=== PATIENT | male | born 1950 | race Caucasian/White ===

== ENCOUNTER 2018-08-29 10:54 | Inpatient (IN) ==
[2018-08-29] MEDS ORDERED: 0.9 % Sodium Chloride 500 ML IVC ONE ×2 (11:13→13:03)
--- NOTE | 2018-08-29 11:13 | Emergency Department Note ---
Disposition Clinical Impression: Leukocytosis Disposition: Admitted As Inpatient Condition: Fair Time of Disposition: 13:30 General Adult HPI - General Chief complaint: ED Altered Mental Status Stated complaint: altered mental status Time Seen by Provider: 08/29/18 11:00 Source: patient, EMS Nursing Notes Reviewed: Yes Vital Signs Reviewed: Yes - History of Present Illness HPI Narrative: Mr. Damian was transported to [place] ER today for altered mental status. He lives with his [id number] and her . He was found per EMS staff sitting in his own feces today. When I asked Mr. Damian about this she has not been incontinent not had any diarrhea but was just too weak to get up to use the bathroom today. He was home alone for a little while this morning. He is also been a bit more short of breath. He is a smoker not on home oxygen. 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 Last radiation treatment was in March on review of the [place] [facility] records. Record review also reveals that he was a no-show at a radiation oncology visit at [facility] about a month ago and a request for call-in of pain medication was denied. Mr. Damian per his own report has been atypically very weak and usually gets around with a walker at home in addition to the shortness of breath. No fever no chills no increased cough no chest pain no abdominal pain no urinary symptoms. He does have some chronic pain to the left leg but otherwise nothing actually hurts. I also told by ER staff that family has been trying to find chcf placement for him. This was confirmed by a daughter and her he did, little later in the ER stay. - Related Data Home Medications Medication Instructions Recorded Confirmed Acetaminophen [Pain Reliever] 500 mg PO AD 12/23/17 06/05/18 Atorvastatin [Lipitor] 40 mg PO HS 12/23/17 06/05/18 Metoprolol Tartrate [Lopressor] 50 mg PO BID 12/23/17 06/05/18 Previous Rx's Medication Instructions Recorded HYDROcodone/Acet 5/325 mg [Baker 1 tab PO Q6H PRN 3 Days #10 tab 05/31/18 5-325 mg] Oxycodone HCl 5 mg PO Q4-6H PRN 15 Days #90 07/10/18 tablet Allergies Allergy/AdvReac Type Severity Reaction Status Date / Time No Known Allergies Allergy Verified 07/01/18 23:38 Constitutional: Reports: weakness. Denies: fever, chills Eyes: Denies: vision change ENT ED: Denies: dysphagia Cardiovascular: Reports: dyspnea on exertion. Denies: chest pain, palpitations Respiratory: Reports: cough, dyspnea. Denies: sputum production Gastrointestinal: Reports: as per HPI. Denies: nausea, vomiting, diarrhea Genitourinary: Reports: as per HPI Musculoskeletal: Reports: arthralgia (Left leg as per history of present illness). Denies: myalgia Integumentary: Reports: rash Neurological: Denies: headache Endocrine: Reports: fatigue Hematological/Lymphatic: Denies: easy bleeding, easy bruising Past Medical History - Past Medical History Medical history: Reports: cancer, COPD, CVA, DVT, hyperlipidemia, hypertension Surgical history: Reports: herniorrhaphy Psychiatric history: Reports: no psych history - Social History Smoking Status: Current every day smoker Smokeless Tobacco Status: No Alcohol use: Reports: none Drug use: Reports: none Physical Exam - General Limitations: altered mental status General appearance: alert, in no apparent distress, other (Mr. Damian does answer some questions appropriately with coaching and redirection. He was initially covered in feces before staff was able to clean him up) - Head Head exam: atraumatic, normocephalic, normal inspection - Eye Eye exam: Present: normal appearance - ENT ENT exam: mucous membranes dry - Neck Neck exam: Present: normal inspection - Chest Chest inspection: Present: other (Left anterior inferior ribs subdermal bony mass overlying skin is normal no pain to palpation) - Respiratory Respiratory exam: Present: other (Diffuse inspiratory expiratory rhonchi wheezes bilaterally symmetrically). Absent: respiratory distress - Cardiovascular Cardiovascular exam: Present: regular rate, normal rhythm, normal heart sounds - Abdominal Exam Abdominal exam: Present: soft, Non-Tender, normal bowel sounds. Absent: tenderness, distention, guarding, rebound, rigidity - Rectal Exam Rectal exam: Present: heme (-) stool (No rectal mass or impacted stool on digital rectal exam. His underpants are full of brown colored stool.) - Extremities Exam Extremities exam: Present: pedal edema (Trace edema right lower leg. Left lower leg appears to of lost a fair amount of muscle mass and has a dressing on it. Diffuse erythema mild pain to palpation along the length of the leg. Per chart review this was placed just yesterday by wound care clinic here at [place].). Absent: calf tenderness (No calf cord or edema) - Neurological Exam Neurological exam: Present: alert. Absent: oriented X3 (Knows his name believes he might be in the hospital but cannot name the year) - Psychiatric Psychiatric exam: Present: normal affect, normal mood - Skin Skin exam: Present: rash (Across his chest are tiny scabbed lesions with some excoriations. I do not see similar lesions in the groin finger or toe web spaces), erythema (Erythema as per left lower extremity exam) Course Vital Signs Temperature 99.4 F 08/29/18 10:55 Pulse Rate 82 08/29/18 10:55 Respiratory Rate 16 08/29/18 10:55 Blood Pressure 112/52 08/29/18 10:55 O2 Sat by Pulse Oximetry 95 08/29/18 10:55 Temperature 99.4 F 08/29/18 10:55 Pulse Rate 69 08/29/18 13:35 Respiratory Rate 16 08/29/18 13:35 Blood Pressure 111/61 08/29/18 13:35 O2 Sat by Pulse Oximetry 100 08/29/18 13:35 Oxygen Delivery Oxygen Delivery Room Air Medical Decision Making - MDM Narrative Medical decision making narrative: Leukocytosis. This could be secondary to advancing CLL or some hemoconcentration as he could be a bit dehydrated. Nonetheless this is markedly elevated compared to 2 months ago. I spoke with his oncologist who inform me that she has had somewhat of a frustrating process and trying to secure Medicare medication coverage for him in terms of conferencing with the patient and his family. She does not see an acute need for hospitalization for specific treatment for leukemia at this point. He would benefit however from IV hydration as his by mouth intake is decreased in order to him of dilute the leukocytosis to avoid any potential complications. Weakness. I also told by his daughter here in the emergency department that he has not been eating much of anything for the last month or so and has lost fair amount of weight. It is quite clear that he is not able to even ambulate to the toilet at this point. He is very much a safety risk for falls at home and would benefit from hospitalization. He we will continue to hydrate him here in the emergency department. Hypoxia. This corrected with 2 L of nasal cannula. Sats now the high 90s. Subjective shortness of breath was relieved by 2 duo nebs here in the emergency department. Repeat lung exam does demonstrate persistence of wheezing but with better air exchange. Mr. Damian is not appropriate for discharge to his current home environment. I spoke with the covering hospitalist here at [place] after I spoke with the oncologist and presented the case. He will be admitted here for IV hydration and social work consultation and continued oxygen supplementation which she does not have at home. Of note neither morphine or oxycodone is on his current med list but on oarrrs review on August 11 morphine 30 mg #60 for a 30 day supply and oxycodone 5 mg on August 25 #120 day supply were filled. Tox screen is positive for opiates which is probably the morphine as the synthetic oxycodone would probably not show up on this drug screen. He is evidently due to be seen by wound care tomorrow per ER staff. Elevated d-dimer noted. No cancer patient. He did improve with DuoNeb nebs and has abnormal lung sounds on exam. My clinical suspicion for pulmonary embolus is low. - Medical Records Medical records reviewed: Yes I reviewed the patient's medical records. - Lab Data Lab results reviewed: Yes I reviewed the patient's lab results. Result diagrams: 08/29/18 11:15 08/29/18 12:05 Lab Results 08/29/18 08/29/18 08/29/18 Range/Units 11:15 12:00 12:00 WBC 274.8 H* (4.3-11.1) K/mcL RBC 3.59 L (4.19-5.50) M/mcL Hgb 9.1 L (12.9-16.9) g/dL Hct 36.4 L (37.5-50.1) % MCV 101.4 H (83.0-100.0) fL MCH 25.3 L (28.0-33.3) pg MCHC 25.0 L (31.6-35.5) g/dL RDW 24.7 H (11.5-14.5) % Plt Count 41 L (140-400) K/mcL MPV 9.1 L (9.4-12.4) fL Immature Gran % 0.2 (0-4) % Seg Neutrophils % 0.9 % Lymphocytes % 98.2 % Monocytes % 0.7 % Eosinophils % 0.0 % Basophils % 0.0 % Neutrophils # 2.5 (1.6-8.9) K/mcL Lymphocytes # 269.9 H (0.6-4.6) K/mcL Monocytes # 1.9 H (0.0-1.3) K/mcL Eosinophils # 0.0 (0.0-0.6) K/mcL Basophils # 0.0 (0.0-0.2) K/mcL Platelet Estimate Decreased L (Normal) Anisocytosis 1+ A (Not Present) D-Dimer (0-500) ng/mLFEU VBG pH (7.32-7.42) pH Units VBG pCO2 (41-51) mmHg VBG pO2 (25-50) mmHg VBG HCO3 (21-27) mEq/L Sodium (136-145) mEq/L Potassium (3.5-5.1) mEq/L Chloride (98-107) mEq/L Carbon Dioxide (23-29) mEq/L BUN (8-23) mg/dL Creatinine (0.70-1.30) mg/dL Est GFR ( Amer) (> 60) Est GFR (Non-Af Amer) (> 60) BUN/Creatinine Ratio (6-26) Glucose (70-105) mg/dL Calculated Osmolality (280-300) Lactic Acid (0.5-2.2) mmol/L Calcium (8.6-10.3) mg/dL Phosphorus (2.7-4.5) mg/dL Magnesium (1.6-2.6) mg/dL Total Bilirubin (0.3-1.0) mg/dL AST (13-39) Units/L ALT (7-52) Units/L Alkaline Phosphatase (34-104) Units/L Troponin I (< 0.04) ng/mL B-Natriuretic Peptide (Less than 100) pg/mL Serum Total Protein (6.4-8.9) g/dL Albumin (3.5-5.7) g/dL Globulin (2.4-3.5) g/dL Albumin/Globulin Ratio (1.1-2.2) Amylase (29-103) Units/L Lipase (11-82) Units/L Urine Color Yellow (Yellow) Urine Clarity Clear (Clear) Urine pH 5.5 (5.0-8.0) pH Units Ur Specific [place]rett 1.025 (1.010-1.025) Urine Protein 30 H (Neg-Trace) mg/dL Urine Glucose (UA) Normal (Normal) mg/dL Urine Ketones Negative (Negative) mg/dL Urine Blood Small H (Negative) Urine Nitrite Negative (Negative) Urine Bilirubin Small H (Negative) Urine Urobilinogen 4.0 H (Normal) mg/dL Ur Leukocyte Esterase Negative (Negative) Urine Microscopic RBC 3-5 H (0-3) per hpf Urine Microscopic WBC 0-3 (0-3) per hpf Ur Culture Indicated? NO (NO) Salicylates (15.0-30.0) mg/dL Urine Opiates Screen Positive H (Aouaqi=733) ng/mL Acetaminophen (10-20) mcg/mL Ur Barbiturates Screen Negative (Eiixjw=518) ng/mL Ur Phencyclidine Scrn Negative (Cutoff=25) ng/mL Ur Amphetamines Screen Negative (Yyitqh=9481) ng/mL U Benzodiazepines Scrn Negative (Jrmedd=359) ng/mL Urine Cocaine Screen Negative (Cutoff= 300) ng/mL U Marijuana (THC) Screen Negative (Cutoff = 50) ng/mL Ur Drug Screen Interp See Below Ethyl Alcohol (Less than 10) mg/dL 08/29/18 08/29/18 08/29/18 Range/Units 12:05 12:05 12:05 WBC (4.3-11.1) K/mcL RBC (4.19-5.50) M/mcL Hgb (12.9-16.9) g/dL Hct (37.5-50.1) % MCV (83.0-100.0) fL MCH (28.0-33.3) pg MCHC (31.6-35.5) g/dL RDW (11.5-14.5) % Plt Count (140-400) K/mcL MPV (9.4-12.4) fL Immature Gran % (0-4) % Seg Neutrophils % % Lymphocytes % % Monocytes % % Eosinophils % % Basophils % % Neutrophils # (1.6-8.9) K/mcL Lymphocytes # (0.6-4.6) K/mcL Monocytes # (0.0-1.3) K/mcL Eosinophils # (0.0-0.6) K/mcL Basophils # (0.0-0.2) K/mcL Platelet Estimate (Normal) Anisocytosis (Not Present) D-Dimer 4056 H (0-500) ng/mLFEU VBG pH (7.32-7.42) pH Units VBG pCO2 (41-51) mmHg VBG pO2 (25-50) mmHg VBG HCO3 (21-27) mEq/L Sodium 138 (136-145) mEq/L Potassium 4.0 (3.5-5.1) mEq/L Chloride 101 (98-107) mEq/L Carbon Dioxide 33 H (23-29) mEq/L BUN 18 (8-23) mg/dL Creatinine 0.63 L (0.70-1.30) mg/dL Est GFR ( Amer) > 60 (> 60) Est GFR (Non-Af Amer) > 60 (> 60) BUN/Creatinine Ratio 29 H (6-26) Glucose 102 (70-105) mg/dL Calculated Osmolality 288 (280-300) Lactic Acid 1.0 (0.5-2.2) mmol/L Calcium 8.5 L (8.6-10.3) mg/dL Phosphorus 3.6 (2.7-4.5) mg/dL Magnesium 2.2 (1.6-2.6) mg/dL Total Bilirubin 1.0 (0.3-1.0) mg/dL AST 18 (13-39) Units/L ALT 20 (7-52) Units/L Alkaline Phosphatase 72 (34-104) Units/L Troponin I (< 0.04) ng/mL B-Natriuretic Peptide (Less than 100) pg/mL Serum Total Protein 5.0 L (6.4-8.9) g/dL Albumin 3.1 L (3.5-5.7) g/dL Globulin 1.9 L (2.4-3.5) g/dL Albumin/Globulin Ratio 1.6 (1.1-2.2) Amylase (29-103) Units/L Lipase (11-82) Units/L Urine Color (Yellow) Urine Clarity (Clear) Urine pH (5.0-8.0) pH Units Ur Specific [place] (1.010-1.025) Urine Protein (Neg-Trace) mg/dL Urine Glucose (UA) (Normal) mg/dL Urine Ketones (Negative) mg/dL Urine Blood (Negative) Urine Nitrite (Negative) Urine Bilirubin (Negative) Urine Urobilinogen (Normal) mg/dL Ur Leukocyte Esterase (Negative) Urine Microscopic RBC (0-3) per hpf Urine Microscopic WBC (0-3) per hpf Ur Culture Indicated? (NO) Salicylates (15.0-30.0) mg/dL Urine Opiates Screen (Txqgdi=965) ng/mL Acetaminophen (10-20) mcg/mL Ur Barbiturates Screen (Cqjznc=814) ng/mL Ur Phencyclidine Scrn (Cutoff=25) ng/mL Ur Amphetamines Screen (Rzldln=4727) ng/mL U Benzodiazepines Scrn (Dgqdjw=991) ng/mL Urine Cocaine Screen (Cutoff= 300) ng/mL U Marijuana (THC) Screen (Cutoff = 50) ng/mL Ur Drug Screen Interp Ethyl Alcohol (Less than 10) mg/dL 08/29/18 08/29/18 08/29/18 Range/Units 12:05 12:05 12:05 WBC (4.3-11.1) K/mcL RBC (4.19-5.50) M/mcL Hgb (12.9-16.9) g/dL Hct (37.5-50.1) % MCV (83.0-100.0) fL MCH (28.0-33.3) pg MCHC (31.6-35.5) g/dL RDW (11.5-14.5) % Plt Count (140-400) K/mcL MPV (9.4-12.4) fL Immature Gran % (0-4) % Seg Neutrophils % % Lymphocytes % % Monocytes % % Eosinophils % % Basophils % % Neutrophils # (1.6-8.9) K/mcL Lymphocytes # (0.6-4.6) K/mcL Monocytes # (0.0-1.3) K/mcL Eosinophils # (0.0-0.6) K/mcL Basophils # (0.0-0.2) K/mcL Platelet Estimate (Normal) Anisocytosis (Not Present) D-Dimer (0-500) ng/mLFEU VBG pH (7.32-7.42) pH Units VBG pCO2 (41-51) mmHg VBG pO2 (25-50) mmHg VBG HCO3 (21-27) mEq/L Sodium (136-145) mEq/L Potassium (3.5-5.1) mEq/L Chloride (98-107) mEq/L Carbon Dioxide (23-29) mEq/L BUN (8-23) mg/dL Creatinine (0.70-1.30) mg/dL Est GFR ( Amer) (> 60) Est GFR (Non-Af Amer) (> 60) BUN/Creatinine Ratio (6-26) Glucose (70-105) mg/dL Calculated Osmolality (280-300) Lactic Acid (0.5-2.2) mmol/L Calcium (8.6-10.3) mg/dL Phosphorus (2.7-4.5) mg/dL Magnesium (1.6-2.6) mg/dL Total Bilirubin (0.3-1.0) mg/dL AST (13-39) Units/L ALT (7-52) Units/L Alkaline Phosphatase (34-104) Units/L Troponin I < 0.03 (< 0.04) ng/mL B-Natriuretic Peptide 775 H (Less than 100) pg/mL Serum Total Protein (6.4-8.9) g/dL Albumin (3.5-5.7) g/dL Globulin (2.4-3.5) g/dL Albumin/Globulin Ratio (1.1-2.2) Amylase 34 (29-103) Units/L Lipase 47 (11-82) Units/L Urine Color (Yellow) Urine Clarity (Clear) Urine pH (5.0-8.0) pH Units Ur Specific [place] (1.010-1.025) Urine Protein (Neg-Trace) mg/dL Urine Glucose (UA) (Normal) mg/dL Urine Ketones (Negative) mg/dL Urine Blood (Negative) Urine Nitrite (Negative) Urine Bilirubin (Negative) Urine Urobilinogen (Normal) mg/dL Ur Leukocyte Esterase (Negative) Urine Microscopic RBC (0-3) per hpf Urine Microscopic WBC (0-3) per hpf Ur Culture Indicated? (NO) Salicylates < 2.5 L (15.0-30.0) mg/dL Urine Opiates Screen (Ckhhwg=915) ng/mL Acetaminophen < 10 L (10-20) mcg/mL Ur Barbiturates Screen (Rseflm=134) ng/mL Ur Phencyclidine Scrn (Cutoff=25) ng/mL Ur Amphetamines Screen (Pnnzxv=4354) ng/mL U Benzodiazepines Scrn (Lmywiq=465) ng/mL Urine Cocaine Screen (Cutoff= 300) ng/mL U Marijuana (THC) Screen (Cutoff = 50) ng/mL Ur Drug Screen Interp Ethyl Alcohol < 10 (Less than 10) mg/dL 08/29/18 Range/Units 12:21 WBC (4.3-11.1) K/mcL RBC (4.19-5.50) M/mcL Hgb (12.9-16.9) g/dL Hct (37.5-50.1) % MCV (83.0-100.0) fL MCH (28.0-33.3) pg MCHC (31.6-35.5) g/dL RDW (11.5-14.5) % Plt Count (140-400) K/mcL MPV (9.4-12.4) fL Immature Gran % (0-4) % Seg Neutrophils % % Lymphocytes % % Monocytes % % Eosinophils % % Basophils % % Neutrophils # (1.6-8.9) K/mcL Lymphocytes # (0.6-4.6) K/mcL Monocytes # (0.0-1.3) K/mcL Eosinophils # (0.0-0.6) K/mcL Basophils # (0.0-0.2) K/mcL Platelet Estimate (Normal) Anisocytosis (Not Present) D-Dimer (0-500) ng/mLFEU VBG pH 7.40 (7.32-7.42) pH Units VBG pCO2 54 H (41-51) mmHg VBG pO2 34 (25-50) mmHg VBG HCO3 33 H (21-27) mEq/L Sodium (136-145) mEq/L Potassium (3.5-5.1) mEq/L Chloride (98-107) mEq/L Carbon Dioxide (23-29) mEq/L BUN (8-23) mg/dL Creatinine (0.70-1.30) mg/dL Est GFR ( Amer) (> 60) Est GFR (Non-Af Amer) (> 60) BUN/Creatinine Ratio (6-26) Glucose (70-105) mg/dL Calculated Osmolality (280-300) Lactic Acid (0.5-2.2) mmol/L Calcium (8.6-10.3) mg/dL Phosphorus (2.7-4.5) mg/dL Magnesium (1.6-2.6) mg/dL Total Bilirubin (0.3-1.0) mg/dL AST (13-39) Units/L ALT (7-52) Units/L Alkaline Phosphatase (34-104) Units/L Troponin I (< 0.04) ng/mL B-Natriuretic Peptide (Less than 100) pg/mL Serum Total Protein (6.4-8.9) g/dL Albumin (3.5-5.7) g/dL Globulin (2.4-3.5) g/dL Albumin/Globulin Ratio (1.1-2.2) Amylase (29-103) Units/L Lipase (11-82) Units/L Urine Color (Yellow) Urine Clarity (Clear) Urine pH (5.0-8.0) pH Units Ur Specific [place] (1.010-1.025) Urine Protein (Neg-Trace) mg/dL Urine Glucose (UA) (Normal) mg/dL Urine Ketones (Negative) mg/dL Urine Blood (Negative) Urine Nitrite (Negative) Urine Bilirubin (Negative) Urine Urobilinogen (Normal) mg/dL Ur Leukocyte Esterase (Negative) Urine Microscopic RBC (0-3) per hpf Urine Microscopic WBC (0-3) per hpf Ur Culture Indicated? (NO) Salicylates (15.0-30.0) mg/dL Urine Opiates Screen (Bvgbjh=068) ng/mL Acetaminophen (10-20) mcg/mL Ur Barbiturates Screen (Jtdbfq=011) ng/mL Ur Phencyclidine Scrn (Cutoff=25) ng/mL Ur Amphetamines Screen (Nynwtp=8137) ng/mL U Benzodiazepines Scrn (Dtdxcg=030) ng/mL Urine Cocaine Screen (Cutoff= 300) ng/mL U Marijuana (THC) Screen (Cutoff = 50) ng/mL Ur Drug Screen Interp Ethyl Alcohol (Less than 10) mg/dL - Radiology Data Radiology results reviewed: Yes I reviewed the patient's radiology results. - EKG Data EKG #1 EKG attestation: Yes I reviewed and interpreted this EKG. EKG results narrative: EKG as interpreted by me normal sinus rhythm 65 bpm. There is some T-wave flattening in aVL. Very mild inversion of perhaps half box in lead 1 and no other T-wave abnormalities. No evidence of hypertrophy. No ST elevations or depressions.
[2018-08-29] MEDS ORDERED: Ondansetron 4 MG/2 ML VIAL IVP ONE (11:14)
[2018-08-29] MEDS ORDERED: Ipratropium/Albuterol Neb 3 ML IH ONE (11:17)
[2018-08-29] MEDS: Ipratropium/Albuterol Neb 3 ML IH ONE ×2 (12:07→12:09)
[2018-08-29 12:20] LABS: Hematocrit 36.4 % (37.5-50.1); Hemoglobin 9.1 g/dL (12.9-16.9); Immature Granulocytes % 0.2 % (0-4); Lymphocytes # 269.9 K/mcL (0.6-4.6); Lymphocytes % 98.2 %; Mean Corpuscular Hemoglobin 25.3 pg (28.0-33.3); Mean Corpuscular Volume 101.4 fL (83.0-100.0); Mean Platelet Volume 9.1 fL (9.4-12.4); Monocytes % 0.7 %; Red Blood Count 3.59 M/mcL (4.19-5.50); Red Cell Distribution Width 24.7 % (11.5-14.5); Segmented Neutrophils % 0.9 %
[2018-08-29 12:24] LABS: VBG HCO3 33 mEq/L (21-27); VBG PCO2 54 mmHg (41-51); VBG PO2 34 mmHg (25-50)
[2018-08-29 12:31] LABS: Alanine Aminotransferase 20 Units/L (7-52); Albumin 3.1 g/dL (3.5-5.7); Albumin/Globulin Ratio 1.6 (1.1-2.2); Alkaline Phosphatase 72 Units/L (34-104); Aspartate Amino Transferase 18 Units/L (13-39); BUN/Creatinine Ratio 29 (6-26); Blood Urea Nitrogen 18 mg/dL (8-23); Calcium 8.5 mg/dL (8.6-10.3); Carbon Dioxide 33 mEq/L (23-29); Chloride 101 mEq/L (98-107); Globulin 1.9 g/dL (2.4-3.5); Glucose 102 mg/dL (70-105); Magnesium 2.2 mg/dL (1.6-2.6); Osmolality,Calculated 288 (280-300); Phosphorous 3.6 mg/dL (2.7-4.5); Sodium 138 mEq/L (136-145); eGFR For Non-African Americans > 60 (> 60)
[2018-08-29 12:32] LABS: Acetaminophen < 10 mcg/mL (10-20); Amylase 34 Units/L (29-103); Ethanol < 10 mg/dL (Less than 10); Lipase 47 Units/L (11-82); Salicylate < 2.5 mg/dL (15.0-30.0)
[2018-08-29 12:36] LABS: Bilirubin,Urine Small (Negative); Blood,Urine Small (Negative); Clarity,Urine Clear (Clear); Color,Urine Yellow (Yellow); Glucose,Urine (UA) Normal (Normal); Ketones,Urine Negative (Negative); Leukocyte Esterase,Urine Negative (Negative); Nitrite,Urine Negative (Negative); PH,Urine 5.5 pH Units (5.0-8.0); Protein,Urine 30 mg/dL (Neg-Trace); Specific Gravity,Urine 1.025 (1.010-1.025)
[2018-08-29 12:38] LABS: WBC,Urine 0-3 per hpf (0-3)
[2018-08-29 12:49] LABS: Monocytes # 1.9 K/mcL (0.0-1.3); Neutrophils # 2.5 K/mcL (1.6-8.9); Platelet Count 41 K/mcL (140-400)
[2018-08-29 12:51] LABS: Anisocytosis 1+ (Not Present); Platelet Estimate Decreased (Normal)
[2018-08-29 13:46] LABS: Amphetamine Screen,Urine Negative ng/mL (Cutoff=1000); Barbiturate Screen,Urine Negative ng/mL (Cutoff=200); Benzodiazepines Screen,Urine Negative ng/mL (Cutoff=200); Cannabinoid Screen,Urine Negative ng/mL (Cutoff = 50); Cocaine Screen,Urine Negative ng/mL (Cutoff= 300); Opiate Screen,Urine Positive ng/mL (Cutoff=300); Phencyclidine Screen,Urine Negative ng/mL (Cutoff=25)
[2018-08-29] MEDS ORDERED: *HR* OxyCODONE/APAP 5/325 TABLET PO PRN (15:10)
[2018-08-29] MEDS ORDERED: *HR* Morphine Immed Rel 30 MG TABLET PO PRN (15:11)
--- NOTE | 2018-08-29 15:41 | Internal Med History&Physical ---
Date of Encounter: 08/29/18 Time of Encounter: 11:00 Internal Medicine - H&P: HPI Chief complaint: POSSIBLE SEPSIS,DEHYDRATION ,PAIN,cll CRISIS Admitted From: Emergency Dept History of present illness: Mr. Damian is a 68 year old male Past Med Surg Social Fam HX - Past Medical History Medical history: cancer, COPD, CVA, DVT, hyperlipidemia, hypertension Additional medical history: Radiation therapy, BEING SEEN AT WOUND CARE FOR LT LOWER LEG WOUND @[facility] WITH DR JUAREZ, SQUAMOUS CELL CARCINOMA Psychiatric history: no psych history - Past Surgical History Surgical History: herniorrhaphy Additional surgical history: R arm Stent-currently being seen for blockage - Social History Smoking Status: Current every day smoker Smokeless Tobacco Status: No Alcohol use: none Drug use: none - Family History Father History Unknown: Yes Living Status: Cause of : Dementia Mother Family Member Ethnicity: Non- Living Status: Hx Family Cardiac Disorders: Yes Hx Family Respiratory Disorders: Yes Hx Family Cancer: No Hx Family GI Disorders: No Hx Family Endocrine Disorder: No Hx Family Neuromuscular Disorders: No Hx Family Neurologic Disorders: No Hx Family HEENT Disorders: No Hx Family Autoimmune Disorders: No Internal Medicine - H&P: Meds Acetaminophen [Pain Reliever] 500 mg PO AD 12/23/17 [History] Atorvastatin [Lipitor] 40 mg PO HS 12/23/17 [History] Metoprolol Tartrate [Lopressor] 50 mg PO BID 12/23/17 [History] RX: HYDROcodone/Acet 5/325 mg [[place] 5-325 mg] 1 tab PO Q6H PRN 3 Days #10 tab 05/31/18 [Rx] RX: Oxycodone HCl 5 mg PO Q4-6H PRN 15 Days #90 tablet 07/10/18 [Rx] Allergy/AdvReac Type Severity Reaction Status Date / Time No Known Allergies Allergy Verified 07/01/18 23:38 All Systems PM: A 10-system review of systems was performed and is negative for pertinent findings except as documented above in the HPI. - Constitutional Vitals: Temp Pulse Resp BP Pulse Ox 98.9 F 78 16 103/58 100 08/29/18 15:11 08/29/18 15:11 08/29/18 15:11 08/29/18 15:11 08/29/18 15:11 General appearance: Present: cachectic - Head Head exam: Present: atraumatic, normocephalic - Neck Neck exam general surgery: Present: supple, trachea midline. Absent: lymphadeno octavio - Respiratory Respiratory exam: Present: decreased breath sounds, CTAB, prolonged expiratory phase. Absent: accessory muscle use, rales, rhonchi, wheezes Additional comments: Patient has a mass noted on his chest x-ray which is relatively new. The radiologist suspects probably bronchogenic CA. He was deemed not in any condi tion to further investigate at this time - Cardiovascular Cardiovascular exam: Present: RRR, +S1, +S2. Absent: diastolic murmur, gallop, rubs, systolic murmur - GI/Abdominal GI/Abdominal exam: Present: normal bowel sounds, soft, no peritoneal signs. Absent: distended, tenderness - Extremities Exam Extremities exam: Present: tenderness, warm, radial pulses palpable and symmetrical. Absent: calf tenderness, cyanotic, pedal edema Additional comments: Patient has dressing on the left anterior tibial area from wound care. Apparently had some debridement done is being followed currently by Dr. Juarez and wound care together. He has about 2 mm pretibial edema on the right side. He has increased erythema but no other open lesions. Patient does have multiple ecchymotic areas throughout the extremities both upper and lower along with the trunk. He states he does not know how they occurred. Pedal pulses are somewhat diminished bilaterally. - Neurological Exam Neurological exam: Present: CN II-XII intact, oriented X3, no focal deficits. Absent: pronater drift, facial droop, speech deficit Additional comments: Gait was not observed. Family states patient walking around the house up until the last few weeks when he has been apparently too weak to ambulate. When he presented to emergency room he had been sitting and feces. He states he had not been eating, incontinent but that he was too weak to get to the bathroom and was alone at the time Internal Med - H&P Results - Labs CBC & Chem 7: 08/29/18 11:15 08/29/18 12:05 Labs: Short CBC 08/29/18 Range/Units 11:15 WBC 274.8 H* (4.3-11.1) K/mcL Hgb 9.1 L (12.9-16.9) g/dL Hct 36.4 L (37.5-50.1) % Plt Count 41 L (140-400) K/mcL Neutrophils # 2.5 (1.6-8.9) K/mcL BMP 08/29/18 12:05 Sodium 138 Potassium 4.0 Chloride 101 Carbon Dioxide 33 H BUN 18 Creatinine 0.63 L Glucose 102 Calcium 8.5 L Cardiac Enzymes 08/29/18 Range/Units 12:05 Troponin I < 0.03 (< 0.04) ng/mL Liver Function 08/29/18 Range/Units 12:05 Total Bilirubin 1.0 (0.3-1.0) mg/dL AST 18 (13-39) Units/L ALT 20 (7-52) Units/L Alkaline Phosphatase 72 (34-104) Units/L Albumin 3.1 L (3.5-5.7) g/dL Urine 08/29/18 Range/Units 12:00 Urine Color Yellow (Yellow) Urine Clarity Clear (Clear) Urine pH 5.5 (5.0-8.0) pH Units Ur Specific [place] 1.025 (1.010-1.025) Urine Protein 30 H (Neg-Trace) mg/dL Urine Glucose (UA) Normal (Normal) mg/dL - ABG Interpretation ABG results: 08/29/18 12:21 VBG pH 7.40 VBG pCO2 54 H VBG pO2 34 VBG HCO3 33 H - Impressions ITS Impressions Chest X-Ray 08/29/18 11:14 IMPRESSION: 1. Cardiomegaly with vascular congestion. 2. No significant change right upper lobe mass. This was evaluated on the CT scan chest dated 07/02/2018 and is still worrisome for a bronchogenic carcinoma. D/ / Aguila Rangel MD / Aguila Rangel MD Interpreting Provider: Aguila Rangel MD Head CT 08/29/18 11:15 IMPRESSION: 1. No acute intracranial abnormality. 2. Near complete opacification of the right maxillary sinus, as well as right facial and preorbital soft tissue swelling, all of which is new from June 2018. Correlation for sinusitis and cellulitis is suggested. 3. Remote left occipital lobe infarct. 4. Mild chronic small vessel ischemic changes. D/ / Darien Russell MD / Darien Russell MD Interpreting Provider: Darien Russell MD Impressions continued: Patient has no history of cardiovascular disease in terms of history of [place] etc. He is had blood pressure problems though apparently according to the family. #1 is possible sepsis #2
[2018-08-29] MEDS: 0.9 % Sodium Chloride 1,000 ML IVC SCH (17:25)
[2018-08-30] MEDS ORDERED: *HR* OxyCODONE/APAP 5/325 TABLET PO PRN (00:20)
[2018-08-30] MEDS: 0.9 % Sodium Chloride 1,000 ML IVC SCH ×4 (00:42→16:52)
[2018-08-30] MEDS: Ondansetron 4 MG/2 ML VIAL IVP PRN ×2 (07:03→08:46)
--- NOTE | 2018-08-30 14:56 | Internal Med Progress Note ---
Date of Encounter: 08/30/18 Time of Encounter: 15:00 - Time Spent With Patient 25 - 35 minutes - Constitutional Vitals: Temp Pulse Resp BP Pulse Ox 98.6 F 76 17 107/49 95 08/30/18 12:22 08/30/18 12:22 08/30/18 12:22 08/30/18 12:22 08/30/18 12:22 General appearance: Present: cachectic, A&O X 2, pleasant, underweight Exam: Patient is much more alert today was sitting up in bed eating color was much improved the patient seems to be stabilizing. We will follow the lab. - Respiratory Respiratory exam: Present: CTAB, prolonged expiratory phase. Absent: accessory muscle use, rales, rhonchi, wheezes Additional comments: Our year possibly some very small rales in the right and little bit of scattered rhonchi. - Cardiovascular Cardiovascular exam: Present: RRR, +S1, +S2. Absent: diastolic murmur, gallop, rubs, systolic murmur - GI/Abdominal GI/Abdominal exam: Present: normal bowel sounds, soft, no peritoneal signs. Absent: distended, tenderness - Skin Skin exam: Present: abrasion, dry, excoriation, warm Internal Medicine: Result - Labs CBC & Chem 7: 08/29/18 11:15 08/29/18 12:05 Labs: CLL is the cause of the high - ABG Interpretation ABG results: PT/INR, D-dimer D-Dimer 4056 ng/mLFEU (0-500) H 08/29/18 12:05 Consult Discharge Plan - Plan Referrals: NONE,PCP [Primary Care Provider] -
[2018-08-30] MEDS: *HR* Morphine Immed Rel 30 MG TABLET PO PRN (16:57)
[2018-08-30] MEDS: *HR* Heparin 5,000 UNIT/ML VIAL SQ SCH (16:57)
[2018-08-31] MEDS: 0.9 % Sodium Chloride 1,000 ML IVC SCH ×3 (00:28→16:41)
[2018-08-31] MEDS: *HR* Morphine Immed Rel 30 MG TABLET PO PRN ×2 (00:33→08:19)
[2018-08-31] MEDS ORDERED: Albuterol 2.5 MG/3 ML NEBULIZER IH ONE (00:49)
[2018-08-31] MEDS: *HR* Heparin 5,000 UNIT/ML VIAL SQ SCH ×2 (04:34→16:42)
[2018-08-31 11:34] LABS: Hematocrit 31.7 % (37.5-50.1); Hemoglobin 7.8 g/dL (12.9-16.9); Immature Granulocytes % 0.1 % (0-4); Lymphocytes % 97.3 %; Mean Corpuscular HGB Conc 24.6 g/dL (31.6-35.5); Mean Corpuscular Hemoglobin 25.6 pg (28.0-33.3); Mean Corpuscular Volume 103.9 fL (83.0-100.0); Mean Platelet Volume 10.7 fL (9.4-12.4); Monocytes # 3.6 K/mcL (0.0-1.3); Monocytes % 1.7 %; Red Blood Count 3.05 M/mcL (4.19-5.50); Red Cell Distribution Width 23.3 % (11.5-14.5); Segmented Neutrophils % 0.9 %
[2018-08-31 12:52] LABS: Alanine Aminotransferase 13 Units/L (7-52); Albumin 2.6 g/dL (3.5-5.7); Albumin/Globulin Ratio 1.4 (1.1-2.2); Alkaline Phosphatase 54 Units/L (34-104); Aspartate Amino Transferase 11 Units/L (13-39); BUN/Creatinine Ratio 32 (6-26); Bilirubin,Total 0.6 mg/dL (0.3-1.0); Blood Urea Nitrogen 17 mg/dL (8-23); Calcium 7.6 mg/dL (8.6-10.3); Carbon Dioxide 32 mEq/L (23-29); Chloride 103 mEq/L (98-107); Globulin 1.8 g/dL (2.4-3.5); Glucose 100 mg/dL (70-105); Osmolality,Calculated 288 (280-300); Potassium 4.1 mEq/L (3.5-5.1); Sodium 138 mEq/L (136-145); Total Protein 4.4 g/dL (6.4-8.9); eGFR For Non-African Americans > 60 (> 60)
[2018-08-31 13:05] LABS: Neutrophils # 1.9 K/mcL (1.6-8.9)
[2018-08-31 13:06] LABS: Platelet Count 41 K/mcL (140-400)
[2018-08-31 13:07] LABS: Anisocytosis 2+ (Not Present); Hypochromasia Present (Not Present); Macrocytosis Present (Not Present); Platelet Estimate Decreased (Normal)
[2018-08-31 13:08] LABS: Poikilocytosis 1+ (Not Present)
--- NOTE | 2018-08-31 13:08 | Internal Med Progress Note ---
Addendum entered and electronically signed by David Mosley DO 09/01/18 11:24: I have personally performed a face to face evaluation on this patient. I have reviewed and agree with the care plan. History and Exam by me shows: Original Note: Date of Encounter: 08/31/18 Time of Encounter: 13:05 - Assessment and plan (1) Altered mental status Current Visit: Yes Status: Acute Assessment and plan: Patient remains very drowsy but is easily awakened by verbal. Patient's answering questions appropriately but remains oriented 2, but not to time. Patient currently follows simple commands and questions. We will continue to monitor. Qualifiers: Altered mental status type: unspecified Qualified Code(s): R41.82 - Altered mental status, unspecified (2) COPD (chronic obstructive pulmonary disease) Current Visit: Yes Status: Acute Assessment and plan: No acute issues at this time. Patient was compliant with BiPAP last evening and appeared to tolerate well. Lungs remain diminished throughout lower walter. Respiratory effort appears relaxed. No current hypoxia. No productive cough. We will continue current plan of care. Patient with history of bronchial CA Qualifiers: COPD type: unspecified COPD Qualified Code(s): J44.9 - Chronic obstructive pulmonary disease, unspecified (3) CLL (chronic lymphocytic leukemia) Current Visit: Yes Status: Acute Assessment and plan: No acute issues. Patient remains very weakened. Most recent WBC was 213. Will continue to monitor with serial labs and continue with current plan of care. (4) Skin ulceration Current Visit: Yes Status: Acute Assessment and plan: No acute issues. Current dsg is dry and intact. Patient seen by Wound Care with recommendations rec'd. Afebrile. Qualifiers: Non-pressure ulcer stage: unspecified non-pressure ulcer stage Qualified Code(s): L98.499 - Non-pressure chronic ulcer of skin of other sites with unspecified severity (5) Right leg swelling Current Visit: Yes Status: Acute Assessment and plan: Right leg appears swollen nonpitting edema. We will obtain a venous Doppler for evaluation. Patient denies any pain during flexible sigmoidoscopy patient of catheter. - Subjective Interval history: Patient appears relaxed currently denies any discomforts or shortness of breath. Patient's only complaint is that he has a very dry mouth. Nurse reports the patient has done well overnight with use of BiPAP. Patient was seen by wound therapy for his wound on the left anterior leg with recommendations received for daily wound care. - Constitutional Vitals: Temp Pulse Resp BP Pulse Ox 98.7 F 82 19 110/59 96 08/31/18 08:40 08/31/18 08:40 08/31/18 08:40 08/31/18 04:00 08/31/18 08:40 General appearance: Present: cachectic, A&O X 2, pleasant, underweight Exam: Drowsy but opens eyes easily to verbal stimulus. Answers questions appropriately. Disoriented to time - Head Head exam: Present: atraumatic, normocephalic - Eye Eye exam: Present: PERRL, conjuntiva pink, sclera anicteric Pupils: Present: PERRL - Neck Neck exam general surgery: Present: supple, trachea midline. Absent: lymphadenopathy - Respiratory Respiratory exam: Present: CTAB. Absent: accessory muscle use, rales, rhonchi, wheezes Additional comments: Lungs are clear throughout upper walter and diminished basilar walter. No productive cough. Respiratory effort appears relaxed. - Cardiovascular Cardiovascular exam: Present: RRR, +S1, +S2. Absent: diastolic murmur, gallop, rubs, systolic murmur - GI/Abdominal GI/Abdominal exam: Present: normal bowel sounds, soft, no peritoneal signs. Absent: distended, tenderness - Extremities Exam Extremities exam: Present: warm, radial pulses palpable and symmetrical. Absent: calf tenderness, cyanotic, pedal edema Additional comments: Patient with [place] wrap dressing to the length of the left leg, which remains dry and intact. Right leg noted to be swollen with nonpitting edema over the entire length of the right leg - Neurological Exam Neurological exam: Present: CN II-XII intact, no focal deficits. Absent: pronater drift, facial droop, speech deficit Additional comments: Drowsy but easily awakened by verbal. O 2 not to time. Conversation is appropriate. No focal neurological motor deficits noted, but moderate generalized weakness - Skin Skin exam: Present: dry, intact Internal Medicine: Result - Labs CBC & Chem 7: 08/31/18 11:23 08/31/18 11:23 Labs: BMP 08/31/18 11:23 Sodium 138 Potassium 4.1 Chloride 103 Carbon Dioxide 32 H BUN 17 Creatinine 0.53 L Glucose 100 Calcium 7.6 L Liver Function 08/31/18 Range/Units 11:23 Total Bilirubin 0.6 (0.3-1.0) mg/dL AST 11 L (13-39) Units/L ALT 13 (7-52) Units/L Alkaline Phosphatase 54 (34-104) Units/L Albumin 2.6 L (3.5-5.7) g/dL - ABG Interpretation ABG results: PT/INR, D-dimer D-Dimer 4056 ng/mLFEU (0-500) H 08/29/18 12:05 Consult Discharge Plan - Plan Referrals: NONE,PCP [Primary Care Provider] -
[2018-08-31] MEDS ORDERED: *HR* LORazepam 2 MG/ML VIAL IVP ONE (15:50)
[2018-08-31] MEDS ORDERED: *HR* FentaNYL PATCH 25 MCG PATCH TD SCH (16:00)
[2018-08-31] MEDS ORDERED: cefTRIAXone 1,000 MG in Water for inj. (sterile) 20 ML 10 ML IVP SCH (17:46)
[2018-08-31] MEDS: Acetaminophen 650 MG RECTAL SUPP RC PRN (18:01)
[2018-08-31 18:07] LABS: Bilirubin,Urine Negative (Negative); Blood,Urine Large (Negative); Clarity,Urine Cloudy (Clear); Color,Urine Yellow (Yellow); Glucose,Urine (UA) Normal (Normal); Ketones,Urine Negative (Negative); Leukocyte Esterase,Urine Small (Negative); Nitrite,Urine Positive (Negative); PH,Urine >=9.0 pH Units (5.0-8.0); Protein,Urine 100 mg/dL (Neg-Trace); Specific Gravity,Urine 1.015 (1.010-1.025); Urobilinogen,Urine Normal (Normal)
[2018-08-31 18:17] LABS: Bacteria,Urine Many per hpf (None-Few); Squamous Epithelial Cell,Urine Few per lpf (None-Few)
[2018-08-31 18:18] LABS: RBC,Urine 15-30 per hpf (0-3); Triple Phosphate Crystal,Urine Present
[2018-08-31] MEDS: *HR* FentaNYL (PF) 100 MCG/2 ML VIAL IVP PRN (19:42)
[2018-08-31] MEDS ORDERED: *HR* LORazepam 2 MG/ML VIAL IVP SCH (20:00)
[2018-08-31] MEDS: *HR* LORazepam 2 MG/ML VIAL IVP PRN (21:02)
[2018-09-01] MEDS: *HR* FentaNYL (PF) 100 MCG/2 ML VIAL IVP PRN ×4 (00:44→11:51)
[2018-09-01] MEDS: 0.9 % Sodium Chloride 1,000 ML IVC SCH (01:35)
[2018-09-01] MEDS: *HR* LORazepam 2 MG/ML VIAL IVP PRN ×4 (01:46→13:24)
[2018-09-01] MEDS: *HR* Heparin 5,000 UNIT/ML VIAL SQ SCH (05:49)
[2018-09-01] MEDS: Acetaminophen 650 MG RECTAL SUPP RC PRN ×2 (05:55→12:40)
[2018-09-01 07:43] VITALS: BP 114/52
[2018-09-01] MEDS ORDERED: cefTRIAXone 1,000 MG in Water for inj. (sterile) 20 ML 10 ML IVP SCH (09:00)
[2018-09-01 10:03] LABS: Hematocrit 30.6 % (37.5-50.1); Mean Corpuscular HGB Conc 26.1 g/dL (31.6-35.5); Mean Corpuscular Hemoglobin 26.1 pg (28.0-33.3); Mean Corpuscular Volume 99.7 fL (83.0-100.0); Mean Platelet Volume 9.9 fL (9.4-12.4); Red Blood Count 3.07 M/mcL (4.19-5.50); Red Cell Distribution Width 22.6 % (11.5-14.5)
[2018-09-01 10:05] LABS: Platelet Count 35 K/mcL (140-400)
[2018-09-01 10:11] LABS: Alanine Aminotransferase 11 Units/L (7-52); Albumin 2.4 g/dL (3.5-5.7); Albumin/Globulin Ratio 1.3 (1.1-2.2); Alkaline Phosphatase 48 Units/L (34-104); Aspartate Amino Transferase 13 Units/L (13-39); BUN/Creatinine Ratio 54 (6-26); Bilirubin,Total 0.7 mg/dL (0.3-1.0); Blood Urea Nitrogen 26 mg/dL (8-23); Calcium 7.7 mg/dL (8.6-10.3); Carbon Dioxide 31 mEq/L (23-29); Chloride 108 mEq/L (98-107); Globulin 1.8 g/dL (2.4-3.5); Glucose 89 mg/dL (70-105); Osmolality,Calculated 300 (280-300); Sodium 143 mEq/L (136-145); Total Protein 4.2 g/dL (6.4-8.9); eGFR For Non-African Americans > 60 (> 60)
--- NOTE | 2018-09-01 11:36 | Internal Med Progress Note ---
Date of Encounter: 09/01/18 Time of Encounter: 11:34 - Assessment and plan (1) Altered mental status Current Visit: Yes Status: Acute Assessment and plan: Patient remains very drowsy but is easily awakened by verbal. Patient has required mild sedation to maintain his BIPAP mask in place. He remained confused and continuously attempted to remove his O2 and was not maintaining his saturation. When placed on BIPAP he would maintain his saturation, but he would not keep the mask on. Patient occasionally awakens spontaneously and cries out in pain. Patient unable to follow any commands or answering questions appropriately.Will continue to monitor closely. Qualifiers: Altered mental status type: unspecified Qualified Code(s): R41.82 - Altered mental status, unspecified (2) COPD (chronic obstructive pulmonary disease) Current Visit: Yes Status: Acute Assessment and plan: Patient continues to require BiPAP at this time to maintain saturations greater than 88%. Patient has removed BiPAP and on room air he immediately drops his saturation to less than 80%. Patient spiked a temperature yesterday of 103.6. Chest x-ray was obtained which showed bilateral pleural effusions with opacities. Patient was started on Rocephin at that time. Patient continues with low-grade fever today. Patient has since been made a DNR CC. We will continue with supportive care and will attempt to wean BiPAP over the next 24 hours. We will maintain only light sedation as necessary. Qualifiers: COPD type: unspecified COPD Qualified Code(s): J44.9 - Chronic obstructive pulmonary disease, unspecified (3) CLL (chronic lymphocytic leukemia) Current Visit: Yes Status: Acute Assessment and plan: Patient has deteriorated over the last 48 hours. Patient currently has had issues with hypoxia, requiring support with BiPAP. Patient has remained confused requiring light sedation to maintain BiPAP. Chest x-ray shows pneumonia with pleural effusions. Patient was started on antibiotics. Today's labs show CBC has dropped to 175. Patient's current status was discussed with family regarding his prognosis with CLL and lung CA. Patient's CODE STATUS was changed to a DNR CC. Discussions are being made with family with possible palliative care. (4) Skin ulceration Current Visit: Yes Status: Acute Assessment and plan: Right leg remains swollen with noted weeping. Current dsg to left leg is dry and intact. Patient seen by Wound Care with recommendations rec'd. Qualifiers: Non-pressure ulcer stage: unspecified non-pressure ulcer stage Qualified Code(s): L98.499 - Non-pressure chronic ulcer of skin of other sites with unspecified severity - Time Spent With Patient less than 15 minutes - Subjective Interval history: Patient currently appears drowsy secondary to sedation. Patient has had a harshal emil decline over the past 24 hours. Patient is arousable to verbal stimulus. Patient frequently attempts to pull off his oxygen or BiPAP mask and has required continued light sedation to prevent removal of mask. Last evening nursing report patient have a core temperature of 103.6. Chest x-ray at that time reviewed showed bilateral opacities with pleural effusions. Patient was started on Rocephin at that time. Patient continues to have a low-grade fever overnight. Patient currently has been well ventilated on BiPAP overnight. Family has been alerted the patient's declining condition and late yesterday patient was made a DNR CC. - Constitutional Vitals: Temp Pulse Resp BP Pulse Ox 99.0 F 79 20 114/52 97 09/01/18 10:45 09/01/18 07:38 09/01/18 07:38 09/01/18 07:38 09/01/18 07:38 General appearance: Present: cachectic, underweight Exam: He remains lethargic secondary to sedation. Patient opens eyes with garbled speech to physical stimulus. Patient remains confused frequently removing BiPAP mask or nasal cannula. Switch patient unable to maintain oxygen saturation - Head Head exam: Present: atraumatic, normocephalic - Eye Eye exam: Present: PERRL, conjuntiva pink, sclera anicteric Pupils: Present: PERRL - Neck Neck exam general surgery: Present: supple, trachea midline. Absent: lymphadenopathy - Respiratory Respiratory exam: Present: CTAB. Absent: accessory muscle use, rales, rhonchi, wheezes Additional comments: Lungs are clear throughout upper walter and diminished throughout basilar walter. Respiratory effort appears relaxed. Patient currently on BiPAP with 12/5 setting and backup rate of 14. Oxygen is at 40%. Patient's saturation remains greater than 90% while on BiPAP. Patient unable to maintain oxygen saturation - Cardiovascular Cardiovascular exam: Present: RRR, +S1, +S2. Absent: diastolic murmur, gallop, rubs, systolic murmur - GI/Abdominal GI/Abdominal exam: Present: normal bowel sounds, soft, no peritoneal signs. Absent: distended, tenderness - Extremities Exam Extremities exam: Present: warm, radial pulses palpable and symmetrical. Absent: calf tenderness, cyanotic, pedal edema Additional comments: Right leg remains swollen had 3+ with minimal weeping noted. Left leg with dressing to lower leg, which is dry and intact. - Neurological Exam Neurological exam: Present: CN II-XII intact, no focal deficits. Absent: pronater drift, facial droop, speech deficit Additional comments: Patient currently is lethargic secondary to sedation. Patient has required sedation to be able to maintain BiPAP mask on due to desaturating oximetry when off BiPAP. Patient is arousable to physical stimulus but unable to follow any commands or answer simple questions. Speech remains garbled. Patient moves all extremities with moderate generalized weakness. No focal neurological deficits noted. - Skin Skin exam: Present: dry, intact Internal Medicine: Result - Labs CBC & Chem 7: 09/01/18 09:56 09/01/18 09:56 Labs: Short CBC 08/31/18 09/01/18 Range/Units 11:23 09:56 WBC 213.8 H* 173.0 H* (4.3-11.1) K/mcL Hgb 7.8 L 8.0 L (12.9-16.9) g/dL Hct 31.7 L 30.6 L (37.5-50.1) % Plt Count 41 L 35 L (140-400) K/mcL Neutrophils # 1.9 (1.6-8.9) K/mcL BMP 08/31/18 09/01/18 11:23 09:56 Sodium 138 143 Potassium 4.1 5.0 Chloride 103 108 H Carbon Dioxide 32 H 31 H BUN 17 26 H Creatinine 0.53 L 0.48 L Glucose 100 89 Calcium 7.6 L 7.7 L Liver Function 08/31/18 09/01/18 Range/Units 11:23 09:56 Total Bilirubin 0.6 0.7 (0.3-1.0) mg/dL AST 11 L 13 (13-39) Units/L ALT 13 11 (7-52) Units/L Alkaline Phosphatase 54 48 (34-104) Units/L Albumin 2.6 L 2.4 L (3.5-5.7) g/dL Urine 08/31/18 Range/Units 17:55 Urine Color Yellow (Yellow) Urine Clarity Cloudy A (Clear) Urine pH >=9.0 H (5.0-8.0) pH Units Ur Specific [place] 1.015 (1.010-1.025) Urine Protein 100 H (Neg-Trace) mg/dL Urine Glucose (UA) Normal (Normal) mg/dL - ABG Interpretation ABG results: PT/INR, D-dimer D-Dimer 4056 ng/mLFEU (0-500) H 08/29/18 12:05 - Impressions Impressions Chest X-Ray 08/31/18 17:21 IMPRESSION: Increased bilateral pleural effusions and basilar opacities, the latter of which could reflect any combination of atelectasis, aspiration or pneumonia. Unchanged right upper lobe mass. D/ / Jose Mayes / Jose Mayes Interpreting Provider: Jose Mayes Consult Discharge Plan - Plan Referrals: NONE,PCP [Primary Care Provider] -
[2018-09-01] MEDS ORDERED: *HR* FentaNYL (PF) 100 MCG/2 ML VIAL IVP ONE (12:17)
[2018-09-01] MEDS ORDERED: 0.9 % Sodium Chloride 1,000 ML IVC SCH (12:20)
--- NOTE | 2018-09-01 13:02 | Discharge Summary ---
Orders not resulted at time of discharge: Pending orders 08/29/18 11:16 Culture,Sputum with Gram Stain [RM] Stat 08/29/18 12:00 Pain Mgt Urine Drug Screen Routine 08/29/18 12:05 Culture,Blood [BC] Stat 08/31/18 17:55 Culture,Urine [RM] Routine 09/02/18 04:00 Basic Metabolic Panel AM 0400 Complete Blood Count w/o Diff [HEME] AM 0400 Mg Serum [Magnesium] AM 0400 Date of Encounter: 09/01/18 Time of Encounter: 12:56 - Discharge Diagnosis (1) Altered mental status Priority: Primary Status: Acute Comments: Patient was admitted to this facility for altered mental status. Patient was also being treated for a wound to the left anterior leg secondary from radiation treatments. Patient with a history of COPD and CLL and supportive care was started. Patient was confused on admission. Patient's pulmonary status began to deteriorate over the last 48 hours and patient's confusion increased. Patient repeatedly removed his O2 and his BiPAP mask causing him to desaturate quickly. Patient has required mild sedation to maintain BiPAP in place. Patient remains confused at this time, unable to follow simple commands. Qualifiers: Altered mental status type: unspecified Qualified Code(s): R41.82 - Altered mental status, unspecified (2) COPD (chronic obstructive pulmonary disease) Priority: Secondary Status: Acute Comments: Patient's pulmonary status has deteriorated since his stay of facility. Patient had elevated temp yesterday of 103.6. Chest x-ray reviewed which shows bilateral pleural effusion and opacities. Patient started on Rocephin. Patient continues to desaturate when not on BiPAP. Patient's required mild sedation due to his confusion to maintain BiPAP mask in place. Patient's current prognosis in relation to his lung cancer and CLL was communicated to family. The decision was made to make patient a DNR CC. Patient's BNP transferred to palliative care at a nursing care facility. We will continue with current medications in place and add comfort meds. Qualifiers: COPD type: unspecified COPD Qualified Code(s): J44.9 - Chronic obstructive pulmonary disease, unspecified (3) CLL (chronic lymphocytic leukemia) Priority: Secondary Status: Acute Comments: Patient has continued to deteriorate during the stay of facility. Patient's last WBC was 175, which has dropped from previous readings. Patient continues to have low-grade fever after starting on Rocephin for pneumonia. Patient has been made a DNR CC and transferred to palliative care. (4) Skin ulceration Priority: Secondary Status: Acute Comments: Patient continues to require wound care to left anterior leg wound. We will continue with daily dressing changes. Qualifiers: Non-pressure ulcer stage: unspecified non-pressure ulcer stage Qualified Code(s): L98.499 - Non-pressure chronic ulcer of skin of other sites with unspecified severity Hospital course: Mr. Damian is a 68 year old male who was recently admitted for altered mental status and for care of a left leg anterior wound secondary to radiation treatment. Patient had history of skin cancer at the site, which was treated with radiation. Patient developed a wound at that site but then was noncompliant with follow-up in the wound deteriorated. Patient with a history of CLL and recently diagnosed lung cancer. Patient with long history of advanced COPD. Patient was confused during his stay at this facility and shortly after his admission and his pulmonary status began to deteriorate. Patient had difficulty maintaining saturations with a nasal cannula and frequently removed his oxygen due to his confusion. Patient's oxygen levels horse maintained on a BiPAP, with patient requiring mild sedation to maintain BiPAP mask in place. Patient later developed a fever of 103.6 with his workup showing a UTI and the chest x-ray having bilateral opacities with pleural effusions. Patient was started on Rocephin and continued to be maintained on BiPAP. Patient's prognosis was communicated to family in relation to his CLL and lung cancer. Patient was changed to a DNR CC with comfort measures taken. Patient is being discharged to senior care facility for further supportive care. Prescriptions will be sent for comfort meds. Discharge discussed with: patient Time spent discussing smoking cessation with patient: 3 to 10 minutes - Time Spent with Patient Total time spent providing and/or coordinating discharge services: Less than 30 minutes - Discharge Medications Home Medications: Acetaminophen [Pain Reliever] 500 mg PO AD 12/23/17 [History] Atorvastatin [Lipitor] 40 mg PO HS 12/23/17 [History] Metoprolol Tartrate [Lopressor] 50 mg PO BID 12/23/17 [History] HYDROcodone/Acet 5/325 mg [Farner 5-325 mg] 1 tab PO Q6H PRN 3 Days #10 tab 05/31/18 [Rx] Oxycodone HCl 5 mg PO Q4-6H PRN 15 Days #90 tablet 07/10/18 [Rx] Allergies/Adverse Reactions: Allergy/AdvReac Type Severity Reaction Status Date / Time No Known Allergies Allergy Verified 07/01/18 23:38 Date of admission: 08/29/18 14:11 Primary care physician: PCP NONE Consults: 08/29/18 17:16 Consult to Nutrition [CONS] Routine Comment: Consulting Provider: NUTRITION Reason for Dietary Consult: Diet Education Consult to Signwriter [CONS] Routine Reason for SW Consult: Need to place in correction patient family is unsure of which one to place also recent 20lb weight loss 08/29/18 18:10 Consult to Wound Care [CONS] Routine Reason for Consult: sees wound care for skin ca to right leg Call Completed: Yes 08/31/18 11:26 Consult to Speech Therapy [CONS] Routine Comment: Evaluate, develop and implement POC Reason for Consult: AMS Call Completed: Yes Discharging clinician: David Mosley - Constitutional Vitals: Temp Pulse Resp BP Pulse Ox 99.0 F 79 20 114/52 97 09/01/18 10:45 09/01/18 07:38 09/01/18 07:38 09/01/18 07:38 09/01/18 07:38 General appearance: Present: cachectic, underweight Exam: Patient remains lethargic but easily awakened. Patient becomes restless and remains confused. Frequently attempting to remove BiPAP mask. - Head Head exam: Present: atraumatic, normocephalic - Eye Eye exam: Present: PERRL, conjuntiva pink, sclera anicteric Pupils: Present: PERRL - Neck Neck exam general surgery: Present: supple, trachea midline. Absent: lymphadenopathy - Respiratory Respiratory exam: Present: CTAB. Absent: accessory muscle use, rales, rhonchi, wheezes Additional comments: Lungs are clear throughout upper [place] and diminished bases. Respiratory effort appears relaxed while on BiPAP. BiPAP currently with 12/5 settings backup rate of 14 and oxygen at 40% - Cardiovascular Cardiovascular exam: Present: RRR, +S1, +S2. Absent: diastolic murmur, gallop, rubs, systolic murmur - GI/Abdominal GI/Abdominal exam: Present: normal bowel sounds, soft, no peritoneal signs. Absent: distended, tenderness - Additional comments: Cesar catheter in place with cloudy yellow urine received - Extremities Exam Extremities exam: Present: warm, radial pulses palpable and symmetrical. Absent: calf tenderness, cyanotic, pedal edema Additional comments: Left leg with dressing in place that is dry and intact. Right leg with 2+ edema - Neurological Exam Neurological exam: Present: no focal deficits. Absent: pronater drift, facial droop, speech deficit Additional comments: Patient remains confused and drowsy. Easily awakened with verbal stimuli but becomes restless. Patient continues to require sedation to avoid his restlessness and removing of his BiPAP mask. No focal deficits noted on exam. - Skin Skin exam: Present: dry, intact - Patient Status Disposition: Transfer SNF Condition: Serious Functional capacity at discharge: bed bound Overall status at discharge: patient is not back to baseline - Discharge Instructions Follow Up With: NONE,PCP [Primary Care Provider] - - Diet and Activity Activity: increase activity as tolerated
--- NOTE | 2018-09-01 13:16 | Physician Discharge Referral ---
ExtendedCare Referral Info Provider in Charge after Transfer: PCP Institutional Level of Care: Skilled - Diagnosis (1) Altered mental status Priority: Primary Status: Acute (2) COPD (chronic obstructive pulmonary disease) Priority: Secondary Status: Chronic (3) CLL (chronic lymphocytic leukemia) Priority: Secondary Status: Chronic (4) Skin ulceration Priority: Secondary Status: Chronic Prognosis: Poor Aware of Diagnosis: Patient, Family Aware of Prognosis: Patient, Family - Transfer Medications Home Medications: Acetaminophen [Pain Reliever] 500 mg PO AD 12/23/17 [History] Atorvastatin [Lipitor] 40 mg PO HS 12/23/17 [History] Metoprolol Tartrate [Lopressor] 50 mg PO BID 12/23/17 [History] HYDROcodone/Acet 5/325 mg [Pateros 5-325 mg] 1 tab PO Q6H PRN 3 Days #10 tab 05/31/18 [Rx] Oxycodone HCl 5 mg PO Q4-6H PRN 15 Days #90 tablet 07/10/18 [Rx] Allergies/Adverse Reactions: Allergy/AdvReac Type Severity Reaction Status Date / Time No Known Allergies Allergy Verified 07/01/18 23:38 - Respiratory Orders Other (bipap 09/20, backup rate 14. Titrate O2 to keep sat >88%) Smoking Cessation: Smoking cessation has been advised. For more information, call the [place] Tobacco Quit Line at 8-077-FHHB-NOW. - Lab Orders Lab Orders: CBC, U/A, Arturo 17, CXR yearly - Ancillary Orders May use pressure relief devices daily prn, May go on BON w/family/respon green party w/meds at nurse discretion PRN - Advance Directives Code Status: DNR-Comfort Care (Pallative care) CERTIFICATION: I certify that the transfer of the above named patient to an Extended Care Facility is necessary for the continuing treatment of the diagnosis listed. The above information is true and accurate reflection of patient's current condition. Confidential - Redisclosure prohibited without a patient's written consent.
[2018-09-01] MEDS ORDERED: *HR* LORazepam 2 MG/ML VIAL IVP ONE (15:18)
[2018-09-02] MEDS ORDERED: Gentamicin Oint 15 GM TUBE TP SCH (09:00)
--- NOTE | 2018-09-02 21:41 | Electrocardiograph Report ---
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
== END 2018-09-01 15:46 | DRG 947 ==
LOC: EMEROOGRE 10:54 → INPGRE 14:11
PROVIDERS: ADMIT Internal Medicine; ATTEND Internal Medicine